=== PATIENT | female | born 1940 | race Caucasian/White ===

== ENCOUNTER 2021-05-02 14:18 | Day surgery (SDC) | payer MEDICARE ==
[2021-05-02] MEDS ORDERED: Sodium Chloride 0.9(Preservative Free) 10 ML IJ ONE (14:19)
[2021-05-02] MEDS ORDERED: BUPIVACAINE 0.5% VIAL IJ ONE (14:19)
[2021-05-02] MEDS ORDERED: Depo-Medrol 40 MG/ML IM ONE (14:19)
[2021-05-02] MEDS ORDERED: DIPRIVAN 200 MG/20 ML IV ONE (15:39)
[2021-05-02] MEDS ORDERED: Lactated Ringers 1,000 ML IV ONE (15:40)
[2021-05-02] MEDS ORDERED: MORPHINE SULFATE 2 MG INJ ONE (16:00)
--- NOTE | 2021-05-02 17:03 | XRAY ---
13 seconds fluoroscopy time in surgery for injection of the right SI joint.
--- NOTE | 2021-05-02 17:13 | XRAY ---
24 seconds fluoroscopy time in surgery for right L4-S1 transforaminal NELI.
--- NOTE | 2021-05-04 09:17 | XRAY ---
Indication: Right sacroiliac joint injection. Intraoperative fluoroscopy was provided for 13 seconds. A single lateral digital spot image submitted for interpretation demonstrates a posterior needle tip projected over the expected sacroiliac joint. Correlate with intraoperative findings/report.
--- NOTE | 2021-05-04 09:17 | XRAY ---
Indication: Right L4-S1 transforaminal NELI. Intraoperative fluoroscopy was provided for 24 seconds. 3 digital spot images submitted for interpretation demonstrate posterior needle tips projected over the expected course of the right L4 and L5 nerve roots. A small amount of contrast has been injected for needle tip placement. Correlate with intraoperative findings/report.
== END 2021-05-02 16:10 | disposition home or self-care (01) ==
LOC: SDC-PAIN 14:18
PROVIDERS: ATTEND Psychiatry & Neurology Pain Medicine
DX: M54.16 Radiculopathy, lumbar region (principal); M46.1 Sacroiliitis, not elsewhere classified; Z79.899 Other long term (current) drug therapy
CPT/HCPCS: 27096; 64483; 64484; 72020; 72100; 77002; 77003; 99100; J1030; J2270; J2704; Q9966; G0260